=== PATIENT | male | born 1945 | race Caucasian/White ===

== ENCOUNTER → 2018-01-21 | Outpatient (CLI) | payer OTHER ==
[~2018-01-21] MED LIST: BLOOD PRESSURE X 2; CHOLESTEROL PILL; FLEXERIL PO; NSAID; [UNRECOGNIZED DRUG - REMARK]
== END | disposition home or self-care (01) ==
LOC: M.RAD 09:46
DX: M53.3 Sacrococcygeal disorders, not elsewhere classified (principal); G89.29 Other chronic pain; Z88.0 Allergy status to penicillin; Z88.6 Allergy status to analgesic agent